=== PATIENT | male | born 1955 | race Caucasian/White ===

== ENCOUNTER 2021-06-12 06:08 | Inpatient (IN) ==
[2021-06-12] MEDS ORDERED: Famotidine 20 MG TABLET PO ONE (06:30)
[2021-06-12] MEDS ORDERED: Morphine Sulfate 2 MG/ML SYRINGE IVP PRN (07:00)
[2021-06-12] MEDS ORDERED: Ondansetron 4 MG/2 ML VIAL IVP PRN ×2 (07:00→13:25)
[2021-06-12] MEDS ORDERED: *HR* FentaNYL (PF) 100 MCG/2 ML VIAL IVP PRN ×2 (07:00→07:13)
[2021-06-12] MEDS ORDERED: *HR* Remifentanil 1 MG VIAL IVP ONE ×3 (07:02→10:53)
[2021-06-12] MEDS ORDERED: *HR* Midazolam HCl 2 MG/2 ML VIAL ONE (07:02)
[2021-06-12] MEDS ORDERED: *HR* Propofol 200 MG/20 ML VIAL IVP ONE (07:02)
[2021-06-12] MEDS ORDERED: *HR* FentaNYL (PF) 100 MCG/2 ML VIAL ONE ×2 (07:02→11:27)
[2021-06-12] MEDS ORDERED: Lidocaine -MPF 2% 5 ML VIAL ONE (07:06)
[2021-06-12] MEDS ORDERED: *HR* Succinylcholine 200 MG/10 ML VIAL IVP ONE (07:06)
[2021-06-12] MEDS ORDERED: *HR* Rocuronium Bromide 50 MG/5 ML VIAL ONE (07:06)
[2021-06-12] MEDS ORDERED: *HR* Phenylephrine 10 MG/ML VIAL ONE (07:08)
[2021-06-12] MEDS ORDERED: CeFAZolin Syr 2,000MG/20 ML 2,000 MG/20 ML SYRINGE IVPB ONE (07:09)
[2021-06-12] MEDS ORDERED: Lidocaine HCL 4 ML Topical Solution (Laryng-O-Jet Kit Sterile Pak) TP ONE (07:10)
[2021-06-12] MEDS ORDERED: Vancomycin 1,000 MG VIAL ONE (07:11)
[2021-06-12] MEDS ORDERED: *HR* HYDROcodone/Acet 10/325 mg TABLET PO PRN (07:13)
[2021-06-12] MEDS ORDERED: Ringers Solution, Lactated 1,000 ML IVC SCH (07:15)
[2021-06-12] MEDS ORDERED: Ringers Solution, Lactated 1,000 ML ONE (07:23)
[2021-06-12] MEDS ORDERED: Lacri-Lube 3.5 GM TUBE ONE (07:23)
[2021-06-12] MEDS ORDERED: Acetaminophen IV 1,000 MG/100 ML BAG IVPB ONE ×2 (07:33→12:32)
[2021-06-12] MEDS ORDERED: Polymyxin B Sulfate 500,000 UNIT, Sodium Chloride IRRigation 1,000 ML IR ONE (07:45)
[2021-06-12] MEDS ORDERED: EPHEDrine 50 MG/ML VIAL ONE (07:55)
[2021-06-12] MEDS ORDERED: *HR* Metoprolol 5 MG/5 ML VIAL IVP ONE (07:58)
[2021-06-12] MEDS ORDERED: Ondansetron 4 MG/2 ML VIAL ONE (08:16)
[2021-06-12] MEDS ORDERED: Neostigmine Methylsulfate 3 MG/3 ML SYRINGE ONE (11:02)
[2021-06-12] MEDS ORDERED: Ketorolac 30 MG/ML VIAL IVP ONE (12:37)
[2021-06-12] MEDS ORDERED: Naloxone 0.4 MG/ML INJ IVP PRN (13:25)
[2021-06-12] MEDS ORDERED: Acetaminophen 325 MG TABLET PO PRN (13:25)
[2021-06-12] MEDS ORDERED: Ringers Solution, Lactated 0 ML ONE (13:42)
[2021-06-12] MEDS: Ringers Solution, Lactated 1,000 ML IVC SCH (13:46)
[2021-06-12] MEDS: *HR* OxyCODONE Immed Rel 5 MG TABLET PO PRN ×2 (14:54→19:27)
[2021-06-12] MEDS: CeFAZolin 2 GM/120 ML BAG IVPB SCH (15:57)
[2021-06-12] MEDS: Acetaminophen 325 MG TABLET PO PRN (18:09)
[2021-06-13] MEDS: *HR* OxyCODONE Immed Rel 5 MG TABLET PO PRN ×5 (00:17→19:42)
[2021-06-13] MEDS: Sucralfate 1 GM TABLET PO SCH ×3 (00:17→19:42)
[2021-06-13] MEDS: CeFAZolin 2 GM/120 ML BAG IVPB SCH (00:25)
[2021-06-13] MEDS: Ringers Solution, Lactated 1,000 ML IVC SCH ×2 (00:26→22:30)
[2021-06-13] MEDS: Simethicone 80 MG TAB.CHEW PO PRN ×2 (11:38→19:41)
[2021-06-13] MEDS: tiZANidine 4 MG TABLET PO PRN (15:24)
[2021-06-13 18:51] LABS: Hematocrit 35.3 % (37.5-50.1); Hemoglobin 11.3 g/dL (12.9-16.9); Mean Corpuscular Hemoglobin 29.8 pg (28.0-33.3); Mean Corpuscular Volume 93.1 fL (83.0-100.0); Mean Platelet Volume 11.3 fL (9.4-12.4); Platelet Count 129 K/mcL (140-400); Red Blood Count 3.79 M/mcL (4.19-5.50); White Blood Count 7.7 K/mcL (4.3-11.1)
[2021-06-13 19:07] LABS: BUN/Creatinine Ratio 15 (6-26); Blood Urea Nitrogen 12 mg/dL (8-23); Calcium 8.3 mg/dL (8.6-10.3); Carbon Dioxide 29 mEq/L (23-29); Chloride 100 mEq/L (98-107); Glucose 109 mg/dL (70-105); Osmolality,Calculated 282 (280-300); Sodium 136 mEq/L (136-145); eGFR For African Americans > 60 (> 60); eGFR For Non-African Americans > 60 (> 60)
[2021-06-13] MEDS: Acetaminophen 325 MG TABLET PO PRN (19:44)
[2021-06-14] MEDS: tiZANidine 4 MG TABLET PO PRN (00:02)
[2021-06-14] MEDS: Ondansetron 4 MG/2 ML VIAL IVP PRN (00:11)
[2021-06-14] MEDS: *HR* OxyCODONE Immed Rel 5 MG TABLET PO PRN ×4 (00:13→21:08)
[2021-06-14] MEDS: Acetaminophen 325 MG TABLET PO PRN ×2 (01:46→19:35)
[2021-06-14 06:45] LABS: Basophils % 0.1 %; Eosinophils % 0.1 %; Hematocrit 35.1 % (37.5-50.1); Hemoglobin 11.5 g/dL (12.9-16.9); Immature Granulocytes % 0.3 % (0-4); Immature Platelets 10.1 % (1.1-6.1); Lymphocytes # 0.8 K/mcL (0.6-4.6); Lymphocytes % 11.4 %; Mean Corpuscular HGB Conc 32.8 g/dL (31.6-35.5); Mean Corpuscular Volume 94.6 fL (83.0-100.0); Mean Platelet Volume 11.8 fL (9.4-12.4); Monocytes # 0.7 K/mcL (0.0-1.3); Monocytes % 9.7 %; Neutrophils # 5.6 K/mcL (1.6-8.9); Platelet Count 130 K/mcL (140-400); Red Blood Count 3.71 M/mcL (4.19-5.50); Segmented Neutrophils % 78.4 %; White Blood Count 7.2 K/mcL (4.3-11.1)
[2021-06-14] MEDS: Simethicone 80 MG TAB.CHEW PO PRN (06:46)
[2021-06-14] MEDS: Sucralfate 1 GM TABLET PO SCH ×2 (08:08→19:34)
[2021-06-14] MEDS: Ringers Solution, Lactated 1,000 ML IVC SCH ×2 (08:08→08:09)
[2021-06-14] MEDS: *HR* HYDROcodone/Acet 5/325 mg TABLET PO PRN (10:16)
[2021-06-15 00:52] LABS: Immature Granulocytes % 0.3 % (0-4)
[2021-06-15 00:54] LABS: Basophils % 0.3 %; Eosinophils % 0.3 %; Hematocrit 32.7 % (37.5-50.1); Hemoglobin 10.4 g/dL (12.9-16.9); Immature Platelets 9.1 % (1.1-6.1); Lymphocytes % 15.3 %; Mean Corpuscular HGB Conc 31.8 g/dL (31.6-35.5); Mean Corpuscular Hemoglobin 29.9 pg (28.0-33.3); Mean Platelet Volume 11.5 fL (9.4-12.4); Monocytes # 0.6 K/mcL (0.0-1.3); Monocytes % 9.4 %; Neutrophils # 4.6 K/mcL (1.6-8.9); Platelet Count 113 K/mcL (140-400); Red Blood Count 3.48 M/mcL (4.19-5.50); Red Cell Distribution Width 12.7 % (11.5-14.5); Segmented Neutrophils % 74.4 %; White Blood Count 6.2 K/mcL (4.3-11.1)
[2021-06-15] MEDS: Ringers Solution, Lactated 1,000 ML IVC SCH ×2 (09:22→09:23)
[2021-06-15] MEDS: Sucralfate 1 GM TABLET PO SCH ×2 (09:24→20:51)
[2021-06-15] MEDS: *HR* OxyCODONE Immed Rel 5 MG TABLET PO PRN (13:47)
[2021-06-16] MEDS: Ondansetron 4 MG/2 ML VIAL IVP PRN (01:37)
[2021-06-16] MEDS: *HR* OxyCODONE Immed Rel 5 MG TABLET PO PRN ×4 (02:54→23:47)
[2021-06-16] MEDS: Sucralfate 1 GM TABLET PO SCH ×2 (09:59→21:15)
[2021-06-17] MEDS: Sucralfate 1 GM TABLET PO SCH ×2 (08:10→21:02)
[2021-06-17] MEDS: *HR* HYDROcodone/Acet 5/325 mg TABLET PO PRN (08:11)
[2021-06-17] MEDS: *HR* OxyCODONE Immed Rel 5 MG TABLET PO PRN ×2 (11:33→21:01)
[2021-06-17] MEDS: Simethicone 80 MG TAB.CHEW PO PRN (23:31)
[2021-06-18] MEDS: *HR* OxyCODONE Immed Rel 5 MG TABLET PO PRN ×3 (03:53→19:21)
[2021-06-18] MEDS: Sucralfate 1 GM TABLET PO SCH ×2 (11:26→21:11)
[2021-06-18] MEDS: Ondansetron 4 MG/2 ML VIAL IVP PRN (19:21)
[2021-06-19] MEDS: *HR* OxyCODONE Immed Rel 5 MG TABLET PO PRN ×4 (00:03→16:20)
[2021-06-19] MEDS: Sucralfate 1 GM TABLET PO SCH (08:28)
[2021-06-19 11:25] VITALS: BP 109/64; PULSE 74; TEMP 97.8; O2SAT 95
[2021-06-19 15:21] LABS: Adenovirus Not Detected (Not Detect); Bordetella Pertussis Not Detected (Not Detect); Chlamydophila pneumoniae Not Detected (Not Detect); Coronavirus 229E Not Detected (Not Detect); Coronavirus HKU1 Not Detected (Not Detect); Coronavirus NL63 Not Detected (Not Detect); Coronavirus OC43 Not Detected (Not Detect); Human Metapneumovirus Not Detected (Not Detect); Human Rhinovirus/Enterovirus Not Detected (Not Detect); Influenza A Subtype 2009 H1 Not Detected (Not Detect); Influenza B Not Detected (Not Detect); Mycoplasma pneumoniae Not Detected (Not Detect); Parainfluenza Virus 1 Not Detected (Not Detect); Parainfluenza Virus 2 Not Detected (Not Detect); Parainfluenza Virus 3 Not Detected (Not Detect); Parainfluenza Virus 4 Not Detected (Not Detect); Respiratory Syncytial Virus Not Detected (Not Detect); SARS-CoV-2 Not Detected (Not Detect)
== END 2021-06-19 17:14 | disposition other institution (70) | DRG 460 ==
LOC: 4WAOSI 06:08 → SDCAOSI 06:08 → 4WAOSI 13:23
PROVIDERS: ADMIT Orthopaedic Surgery Orthopaedic Surgery of the Spine; ATTEND Orthopaedic Surgery Orthopaedic Surgery of the Spine